=== PATIENT | female | born 1945 | race African-American/Black ===

== ENCOUNTER 2018-11-22 15:34 | Emergency (ER) | payer MEDICARE ==
[~2018-11-22] VITALS: Ht 165.1 cm; Wt 73.0 kg
[2018-11-22 17:24] LABS: BASOPHILS % 0.5 % (0.0-2.0); EOSINOPHILS % 0.8 % (0.0-5.0); HEMATOCRIT. 38.9 % (36.0-48.0); HEMOGLOBIN. 12.9 g/dL (12.0-16.0); LYMPHOCYTES % 21.5 % (20.0-50.0); MEAN CORPUSCULAR HEMOGLOBIN 31.8 pg (28.0-32.0); MEAN CORPUSCULAR VOLUME 96.1 fL (81.0-99.0); MEAN PLATELET VOLUME 7.5 fl (7.4-10.4); MONOCYTES % 6.4 % (2.0-8.0); NEUTROPHILS % 70.8 % (40.0-76.0); PLATELET 210 x1000/uL (130-400); RED BLOOD CELL COUNT 4.05 mill/uL (4.2-5.4)
[2018-11-22 17:29] LABS: CHLORIDE 108 mEq/L (98-107)
[2018-11-22 17:33] LABS: ETHANOL BLOOD 168 mg/dL
[2018-11-22 17:35] LABS: PROTHROMBIN TIME 10.2 sec (9.1-11.1)
[2018-11-22 17:56] LABS: CLARITY URINE CLEAR (CLEAR); COLOR URINE YELLOW (YELLOW); KETONES URINE NEGATIVE (NEGATIVE); LEUKOCYTE ESTERASE URINE NEGATIVE (NEGATIVE); NITRITE URINE NEGATIVE (NEGATIVE); OCCULT BLOOD URINE NEGATIVE (NEGATIVE); PROTEIN URINE NEGATIVE (NEGATIVE); SPECIFIC GRAVITY URINE 1.007 (1.005-1.030); UROBILINOGEN URINE 0.2 E.U./dL (0.2-1.0)
[2018-11-22 18:12] LABS: *AMPHETAMINES SCREEN URINE NEGATIVE (NEGATIVE); *BARBITURATES SCREEN URINE NEGATIVE (NEGATIVE); *BENZODIAZEPINES SCREEN URINE NEGATIVE (NEGATIVE); *COCAINE SCREEN URINE NEGATIVE (NEGATIVE)
[2018-11-22 18:13] LABS: CANNABINOID URINE SCREEN NEGATIVE (NEGATIVE); OPIATES URINE SCREEN NEGATIVE (NEGATIVE); PHENCYCLIDINE URINE SCREEN NEGATIVE (NEGATIVE)
[2018-11-22 18:14] LABS: METHADONE URINE SCREEN NEGATIVE (NEGATIVE)
[2018-11-22 18:38] VITALS: BP 165/98
== END 2018-11-22 18:40 | disposition home or self-care (01) ==
LOC: ER 15:52
DX: F10.129 Alcohol abuse with intoxication, unspecified (principal); I10 Essential (primary) hypertension; R42 Dizziness and giddiness; Z98.890 Other specified postprocedural states; W10.8XXA Fall (on) (from) other stairs and steps, initial encounter; Y93.89 Activity, other specified; Y92.89 Other specified places as the place of occurrence of the external cause; Y99.8 Other external cause status; Y90.6 Blood alcohol level of 120-199 mg/100 ml
CPT/HCPCS: 36415; 70450; 71045; 73521; 80053; 80305; 81003; 83880; 84484; 85025; 85610; 93005; 99284; G0482

== ENCOUNTER 2019-07-18 10:25 | Inpatient (IN) | payer MEDICARE ==
[~2019-07-18] VITALS: Ht 172.7 cm; Wt 62.1 kg
[2019-07-18] MEDS ORDERED: GABA-531 MT (11:05)
[2019-07-18] MEDS ORDERED: METO-396 MT (11:05)
[2019-07-18] MEDS ORDERED: CHOL100044 MT (11:05)
[2019-07-18] MEDS ORDERED: MECL-109 MT (11:05)
[2019-07-18] MEDS ORDERED: LISI-648 MT (11:05)
[2019-07-18] MEDS ORDERED: LEVO50TA8 MT (11:05)
[2019-07-18] MEDS ORDERED: OMEP20CA5 MT (11:05)
[2019-07-18] MEDS ORDERED: VALA100044 MT (11:05)
[2019-07-18] MEDS ORDERED: ASPIRIN 81MG TABLET PO ONE (11:15)
[2019-07-18 11:31] LABS: BASOPHILS % 0.9 % (0.0-2.0); EOSINOPHILS % 3.6 % (0.0-5.0); HEMATOCRIT. 32.9 % (36.0-48.0); HEMOGLOBIN. 11.2 g/dL (12.0-16.0); LYMPHOCYTES % 27.1 % (20.0-50.0); MEAN CORPUSCULAR HEMOGLOBIN 31.8 pg (28.0-32.0); MEAN CORPUSCULAR VOLUME 93.7 fL (81.0-99.0); MONOCYTES % 8.4 % (2.0-8.0); PLATELET 224 x1000/uL (130-400); RED BLOOD CELL COUNT 3.51 mill/uL (4.2-5.4); RED CELL DISTRIBUTION WIDTH 13.5 % (11.6-14.6)
[2019-07-18 11:37] LABS: CHLORIDE 109 mEq/L (98-107)
[2019-07-18] MEDS ORDERED: ONDANSETRON HCL 4MG/2ML INJ IV PRN (16:45)
[2019-07-18] MEDS ORDERED: CLONIDINE 0.1MG TABLET PO PRN (16:45)
[2019-07-18] MEDS ORDERED: MORPHINE SULFATE 2 MG/ML CPJ (NOT FOR IM USE) IV PRN (16:45)
[2019-07-18] MEDS ORDERED: ACETAMINOPHEN 325MG TABLET PO PRN (16:45)
[2019-07-18] MEDS ORDERED: IPRATROPIUM/ALBUTEROL 0.5-3(2.5)MG/3ML NEB HHN PRN (16:45)
[2019-07-18] MEDS ORDERED: HYDROCODONE/ACETAMINOPHEN 5/325MG TABLET PO PRN (16:45)
[2019-07-18 16:58] VITALS: BP 128/89
[2019-07-18] MEDS: ENOXAPARIN 40MG/0.4ML SYR SUBCUT SCH (19:04)
[2019-07-18 20:00] VITALS: BP 139/83
[2019-07-18] MEDS: PREGABALIN 50 MG CAPSULE PO SCH (20:36)
[2019-07-19] VITALS (7 sets, daily range): BP systolic 114–163; BP diastolic 73–88
[2019-07-19 00:24] LABS: CREATINE KINASE 67 IU/L (26-192)
[2019-07-19 06:09] LABS: BASOPHILS % 0.9 % (0.0-2.0); EOSINOPHILS % 3.8 % (0.0-5.0); HEMATOCRIT. 33.2 % (36.0-48.0); HEMOGLOBIN. 11.4 g/dL (12.0-16.0); LYMPHOCYTES % 23.4 % (20.0-50.0); MEAN CORPUSCULAR VOLUME 93.5 fL (81.0-99.0); MEAN PLATELET VOLUME 7.8 fl (7.4-10.4); MONOCYTES % 11.3 % (2.0-8.0); NEUTROPHILS % 60.6 % (40.0-76.0); PLATELET 226 x1000/uL (130-400); RED BLOOD CELL COUNT 3.56 mill/uL (4.2-5.4); RED CELL DISTRIBUTION WIDTH 13.4 % (11.6-14.6)
[2019-07-19 06:24] LABS: CHLORIDE 109 mEq/L (98-107)
[2019-07-19 06:40] LABS: LDL CHOLESTEROL 108 mg/dL (5-100)
[2019-07-19 06:41] LABS: CREATINE KINASE 69 IU/L (26-192); HDL CHOLESTEROL 54 mg/dL (40-59); T4 FREE 0.86 ng/dL (0.76-1.46)
[2019-07-19] MEDS: PREGABALIN 50 MG CAPSULE PO SCH ×2 (08:26→21:11)
[2019-07-19] MEDS: ENOXAPARIN 40MG/0.4ML SYR SUBCUT SCH (18:06)
== END 2019-07-19 23:39 | disposition home or self-care (01) | DRG 74 ==
LOC: ER 10:25 → 5WST 14:20 → EDBEDREQ 14:22 → EDBEDREQTM 14:22 → EDBEDREQ 14:23 → ENRESERV 14:38 → 5WST 17:35
PROVIDERS: ADMIT Internal Medicine; ATTEND Internal Medicine
DX: B02.29 Other postherpetic nervous system involvement (principal); R07.89 Other chest pain; E03.9 Hypothyroidism, unspecified; I10 Essential (primary) hypertension; M81.0 Age-related osteoporosis without current pathological fracture; E78.5 Hyperlipidemia, unspecified; K21.9 Gastro-esophageal reflux disease without esophagitis; E86.0 Dehydration; D64.9 Anemia, unspecified; Z86.19 Personal history of other infectious and parasitic diseases; Z98.84 Bariatric surgery status; Z85.818 Personal history of malignant neoplasm of other sites of lip, oral cavity, and pharynx; Z79.899 Other long term (current) drug therapy
CPT/HCPCS: 36415; 71045; 80061; 82550; 83880; 84439; 84443; 84484; 85379; 93005; 93306; 96372; 99285; J1650

== ENCOUNTER 2021-11-30 18:24 | Emergency (ER) | payer MEDICARE ==
[~2021-11-30] VITALS: Ht 172.7 cm; Wt 62.0 kg
[~2021-11-30 18:24] MED LIST: CHOL100044 MT; GABA-532 MT; LEVO50TA8 MT; LISI-648 MT; MECL-159 MT; METO-396 MT; OMEP20CA14 MT; VALA100044 MT
[2021-11-30] MEDS ORDERED: ACETAMINOPHEN 325MG TABLET PO ONE (18:45)
[2021-11-30] MEDS ORDERED: BACL-141 MT (22:28)
[2021-11-30] MEDS ORDERED: ACET-2708 MT (22:28)
[2021-11-30] MEDS ORDERED: LIDO700A15 TP (22:28)
[2021-11-30] MEDS ORDERED: LIDOCAINE 5% PATCH TOP SCH (22:45)
[2021-12-01 00:11] VITALS: BP 129/75
== END 2021-12-01 00:31 | disposition home or self-care (01) ==
LOC: ER 18:56
DX: M54.50 Low back pain, unspecified (principal); M25.552 Pain in left hip; I10 Essential (primary) hypertension; M17.11 Unilateral primary osteoarthritis, right knee; Z98.84 Bariatric surgery status; W10.8XXA Fall (on) (from) other stairs and steps, initial encounter; Y93.89 Activity, other specified; Y92.018 Other place in single-family (private) house as the place of occurrence of the external cause
CPT/HCPCS: 72131; 73030; 73502; 99284